=== PATIENT | female | born 1955 | race African-American/Black ===

== ENCOUNTER 2017-01-07 12:03 | Emergency (ER) | payer OTHER ==
[~2017-01-07] VITALS: Ht 165.1 cm; Wt 65.0 kg
[~2017-01-07 12:03] MED LIST: ALLE24TA PO; CYCL5TAB PO; FLUT1SPR9; MELO15TA2 PO; Z.0.NO CURRENT MEDS
[2017-01-07 12:05] VITALS: BP 127/73; PULSE 79; RESP 18; TEMP 98; O2SAT 100
[2017-01-07] MEDS ORDERED: ZANT150T2 PO (12:26)
[2017-01-07] MEDS ORDERED: CYCL1TAB29 PO (12:30)
[2017-01-07] MEDS ORDERED: diphenhydrAMINE HCL 50 MG CAP PO ONE (12:30)
[2017-01-07] MEDS ORDERED: DILA8TAB4 PO (12:30)
[2017-01-07] MEDS ORDERED: RANITIDINE HCL SYRUP 150 MG/10 ML UDC PO ONE (12:30)
[2017-01-07] MEDS ORDERED: LANTUS2P SQ (12:30)
[2017-01-07] MEDS ORDERED: MOBI15TA PO (12:30)
--- NOTE | 2017-01-07 12:31 | PD ---
HPI Chief Complaint: Skin Problem Time Seen by Provider: 12:25 Travel History International Travel<30 days: No Contact w/Intl Traveler<30days: No Traveled to known affect area: No History of Present Illness HPI 61-year-old female presents to the emergency Department with complaint of a rash around both of her eyes after applying a new makeup blush on Wednesday. She denies change in vision, drainage from her eyes, eye pain. Reports rash is itchy. Denies fever, vomiting. Denies airway edema, shortness of breath, difficulty breathing. Is not taking any medications or tried any treatments to alleviate her symptoms. No known allergies. Patient is insulin-dependent diabetic. Has no other medical complaints. No other modifying factors or associated signs and symptoms. PFSH Past Medical History Anxiety: Yes Diabetes: Yes Diminished Hearing: No Fibromyalgia: Yes Musculoskeletal: Yes (rt rotator cuff injury) Neurologic: Yes (FIBROMYALGIA) Psychiatric: Yes (UNKNOWN DIAGNOSIS) Immunizations Current: No ?: Not Menopausal: Yes Past Surgical History Section: Yes Social History Alcohol Use: No Tobacco Use: No Substance Use: No Allergies-Medications (Allergen,Severity, Reaction): Coded Allergies: No Known Allergies (Verified , 01/07/17) Reported Meds & Prescriptions Reported Meds & Active Scripts Active Zantac (Ranitidine HCl) 150 Mg Tab 150 Mg PO BID 5 Days Reported Lantus Inj (Insulin Glargine) 1,000 Unit/10 Ml Vial 20 Units SQ HS Mobic (Meloxicam) 15 Mg Tab 15 Mg PO DAILY Flexeril (Cyclobenzaprine HCl) 10 Mg Tab 10 Mg PO Q8HR PRN Dilaudid (Hydromorphone HCl) 8 Mg Tab 8 Mg PO TID PRN Review of Systems Except as stated in HPI: all other systems reviewed are Neg Physical Exam Narrative GENERAL: Well-nourished, well-developed patient, in no acute distress; afebrile , nontoxic-appearing SKIN: Warm and dry. Small areas of maculopapular rash around both eyes; no orbital tenderness, cellulitis, erythema; both eyes are nonedematous and without drainage. No cellulitic process noted. HEAD: Atraumatic. Normocephalic. EYES: PERRL, EOMI, no discharge or injection. No scleral icterus. No orbital tenderness, cellulitis, erythema. No scleral erythema. No lid edema. ENT: Mucosa pink and moist. No erythema or exudates. No uvular edema. No uvular , palatal, or tonsillar deviation. Airway patent. EARS: Bilateral pinnae and external canals appear within normal limits. NECK: Trachea midline. No lymphadenopathy. CARDIOVASCULAR: Regular rate. RESPIRATORY: No accessory muscle use. GASTROINTESTINAL: Flat. MUSCULOSKELETAL: No obvious deformities. No clubbing. No cyanosis. No edema. NEUROLOGICAL: Awake and alert. Oriented 3. No obvious cranial nerve deficits. Motor grossly within normal limits. Normal speech. Moves all extremities. 5/5 strength to all extremities. PSYCHIATRIC: Appropriate mood and affect; insight and judgment normal. Data Data Last Documented VS Vital Signs Date Time Temp Pulse Resp B/P Pulse Ox O2 Delivery O2 Flow Rate FiO2 01/07/17 12:05 98.0 79 18 127/73 100 Room Air Orders Ranitidine Liq (Zantac Liq) (01/07/17 12:30) Diphenhydramine (Benadryl) (01/07/17 12:30) [facility] Medical Decision Making Medical Screen Exam Complete: Yes Emergency Medical Condition: Yes Medical Record Reviewed: Yes Differential Diagnosis Hives, contact dermatitis, allergic reaction Narrative Course 61-year-old female with rash around both of her eyes that is consistent with hives after using a new makeup blush on Wednesday. Patient denies airway edema. She is in no acute distress and without retractions or tachypnea. Speaking full sentences. Oxygen saturation is 100% on room air. No signs of cellulitis around the eyes. No orbital tenderness. Patient is afebrile and nontoxic- appearing. She denies fever, vomiting. Eye exam is unremarkable. Patient is insulin dependent diabetic. Zantac and Benadryl administered in the ER. Instructed patient to take Benadryl as directed and as needed for rash/itching. Zantac prescribed for home. Instructed patient to follow up with primary care provider. Patient verbalizes understanding and agreement with treatment plan. Patient is medically cleared and stable for discharge. Discussed reasons to return to the emergency department. Patient agrees with treatment plan. The patients vital signs are stable and the patient is stable for outpatient follow-up and treatment. Patient discharged home, stable and in no acute distress. Diagnosis Primary Impression: Hives Referrals: [facility] Administrative Office Clerk Primary Care Physician Patient Instructions: Contact Dermatitis (ED), General Allergic Reaction (ED), General Instructions Additional Instructions: [id number] topicals to reduce itch Benadryl as directed and as needed to reduce itch Follow-up with your primary care provider Follow-up with group program manager as needed Return to the emergency department immediately with worsening of symptoms Med/Other Pt SpecificInfo: Prescription(s) given Scripts Ranitidine (Zantac)150 Mg [id number] Mg PO BID 5 Days Ref 0 Prov:Elina Redman 01/07/17 Disposition: 01 DISCHARGE HOME Condition: Stable Elina Redman Jan 07, 2017 12:31
== END 2017-01-07 13:04 | disposition home or self-care (01) ==
LOC: NEPK 12:03
DX: L50.9 Urticaria, unspecified (principal); F41.9 Anxiety disorder, unspecified; E11.9 Type 2 diabetes mellitus without complications; M79.7 Fibromyalgia; Z79.4 Long term (current) use of insulin; Z79.899 Other long term (current) drug therapy
CPT/HCPCS: 99283; Q0163

== ENCOUNTER 2017-02-26 02:43 | Inpatient (IN) | payer OTHER ==
[~2017-02-26] VITALS: Ht 165.1 cm; Wt 63.4 kg
[2017-02-26] VITALS (8 sets, daily range): BP systolic 113–135; BP diastolic 65–71; PULSE 72–95; RESP 16–18; TEMP 97.7–99; O2SAT 94–98
[~2017-02-26 02:43] MED LIST changes: -ALLE24TA PO; +CYCL1TAB29 PO; -CYCL5TAB PO; +DILA8TAB4 PO; -FLUT1SPR9; +LANTUS2P SQ; -MELO15TA2 PO; +MOBI15TA PO; -Z.0.NO CURRENT MEDS; +ZANT150T2 PO
[2017-02-26 03:27] LABS: BLOOD, URINE LARGE (NEG); GLUCOSE,URINE 1000 mg/dL (NEG); KETONE, URINE 10 mg/dL (NEG); MUCUS URINE FEW /lpf (OCC); RENAL EPITHELIAL CELLS 48 /hpf
[2017-02-26 03:28] LABS: COMMENT (UR) CULTURE INDICATED; CULTURE IF INDICATED CULTURE INDICATED; NITRITE,URINE POS (NEG); URINE COLOR LIGHT-RED (YELLW/STRAW)
[2017-02-26] MEDS ORDERED: SODIUM CHLORIDE 0.9% FLUSH 10 ML FLUSH IVF PRN (03:45)
--- NOTE | 2017-02-26 03:47 | PD ---
HPI Chief Complaint: Flank/Kidney Pain Time Seen by Provider: 03:42 Travel History International Travel<30 days: No Contact w/Intl Traveler<30days: No Traveled to known affect area: No History of Present Illness HPI 62-year-old female came to the emergency room with history of left lower quadrant pain. Patient says that it started yesterday morning and it comes and goes. When it's present it's 8-10 out of 10. It's a sharp pain. She has had kidney stones in the past. No history of nausea vomiting. She has been getting some chills. In triage her temperature was 99. She has hematuria. Patient has history of diabetes. She hasn't had her strips for the glucometer and hasn't checked her sugar in a while. [facility] Past Medical History Narrative Medical List of her past medical, surgical, social and family history is reviewed from the nursing note. Anxiety: Yes Diabetes: Yes (Lantus) Patient Takes Glucophage: No Diminished Hearing: No Fibromyalgia: Yes Musculoskeletal: Yes (rt rotator cuff injury,DJD , SCIATICA, LUMBAR ) Neurologic: Yes (FIBROMYALGIA) Immunizations Current: No Tetanus Vaccination: Unknown Influenza Vaccination: No ?: Not LMP: [place]ap[place] Menopausal: Yes Past Surgical History Abdominal Surgery: Yes (LAPAROSCOPY) Section: Yes Social History Alcohol Use: No Tobacco Use: No Substance Use: No Allergies-Medications (Allergen,Severity, Reaction): Coded Allergies: No Known Allergies (Verified , 01/07/17) Comments List of her allergies reviewed from the nursing note. Reported Meds & Prescriptions Reported Meds & Active Scripts Active Zantac (Ranitidine HCl) 150 Mg Tab 150 Mg PO BID 5 Days Reported Lantus Inj (Insulin Glargine) 1,000 Unit/10 Ml Vial 20 Units SQ HS Mobic (Meloxicam) 15 Mg Tab 15 Mg PO DAILY Flexeril (Cyclobenzaprine HCl) 10 Mg Tab 10 Mg PO Q8HR PRN Dilaudid (Hydromorphone HCl) 8 Mg Tab 8 Mg PO TID PRN Narrative Medication List of her home medications reviewed from the nursing note. Review of Systems Except as stated in HPI: all other systems reviewed are Neg Physical Exam Narrative GENERAL: Awake, alert, moderate distress SKIN: Focused skin assessment warm/dry. HEAD: Atraumatic. Normocephalic. EYES: Pupils equal and round. No scleral icterus. No injection or drainage. ENT: No nasal bleeding or discharge. Mucous membranes pink and moist. NECK: Trachea midline. No JVD. CARDIOVASCULAR: Regular rate and rhythm. No murmur appreciated. RESPIRATORY: No accessory muscle use. Clear to auscultation. Breath sounds equal bilaterally. GASTROINTESTINAL: Abdomen soft, non-tender, nondistended. Hepatic and splenic margins not palpable. MUSCULOSKELETAL: No obvious deformities. No clubbing. No cyanosis. No edema. NEUROLOGICAL: Awake and alert. No obvious cranial nerve deficits. Motor grossly within normal limits. Normal speech. PSYCHIATRIC: Appropriate mood and affect; insight and judgment normal. Data Data Last Documented VS Vital Signs Date Time Temp Pulse Resp B/P (MAP) Pulse Ox O2 Delivery O2 Flow Rate FiO2 02/26/17 02:59 16 02/26/17 02:45 99.0 95 135/70 (91) 98 Room Air Orders Orders Urinalysis - C+S If Indicated (02/26/17 03:04) Urine Culture (02/26/17 03:00) Complete Blood Count With Diff (02/26/17 03:44) Basic Metabolic Panel (Bmp) (02/26/17 03:44) Ct Abd/Pel W/O Iv Contrast (02/26/17 03:44) Ecg Monitoring (02/26/17 03:44) Iv Access Insert/Monitor (02/26/17 03:44) Sodium Chloride 0.9% Flush (Ns Flush) (02/26/17 03:45) Morphine Inj (Morphine Inj) (02/26/17 04:00) Ondansetron Inj (Zofran Inj) (02/26/17 04:00) Ceftriaxone Inj (Rocephin Inj) (02/26/17 04:00) Blood Culture (02/26/17 03:49) Lactic Acid (02/26/17 04:21) Sodium Chlor 0.9% 1000 Ml Inj (Ns 1000 M (02/26/17 04:30) Sodium Chlor 0.9% 1000 Ml Inj (Ns 1000 M (02/26/17 04:30) Blood Glucose (02/26/17 04:29) Potassium Chloride (Kcl) (02/26/17 04:45) Admit Order (Ed Use Only) (02/26/17 05:26) Ceftriaxone Inj (Rocephin Inj) (02/27/17 06:00) Admit To Inpatient (02/26/17 ) Vital Signs (Adult) Q4H (02/26/17 05:24) Activity Oob Ad Tiffani (02/26/17 05:24) Medicaid Analyst / Telemetry .CONTINUOUS (02/26/17 05:24) Intake + Output HANNA.QSHIFT (02/26/17 05:24) Diet 1800 Ada Cons Carb (02/26/17 Breakfast) Sodium Chlor 0.9% 1000 Ml Inj (Ns 1000 M (02/26/17 05:24) Sodium Chloride 0.9% Flush (Ns Flush) (02/26/17 05:30) Sodium Chloride 0.9% Flush (Ns Flush) (02/26/17 09:00) Ondansetron Inj (Zofran Inj) (02/26/17 05:30) Comprehensive Metabolic Panel (02/27/17 06:00) Complete Blood Count With Diff (02/27/17 06:00) Scd Bilateral/Knee High HANNA.BID (02/26/17 05:24) Adán Bilateral/Knee High HANNA.QSHIFT (02/26/17 05:24) Acetaminophen (Tylenol) (02/26/17 05:30) Acetamin-Hydrocod 325-5 Mg (Camas 5-325 (02/26/17 05:30) Morphine Inj (Morphine Inj) (02/26/17 05:30) Docusate Sodium-Senna (Luz-Colace) (02/26/17 09:00) Magnesium Hydroxide Liq (Milk Of Magnesi (02/26/17 05:30) Sennosides (Senokot) (02/26/17 05:30) Bisacodyl Supp (Dulcolax Supp) (02/26/17 05:30) Lactulose Liq (Lactulose Liq) (02/26/17 05:30) Inpatient Certification (02/26/17 ) Insulin Detemir Inj (Levemir Inj) (02/26/17 21:00) Labs Laboratory Tests Test 02/26/17 03:00 02/26/17 04:00 02/26/17 04:30 Urine Color LIGHT-RED Urine Turbidity CLOUDY Urine pH 6.0 Urine Specific [place] 1.035 Urine Protein 300 mg/dL Urine Glucose (UA) 1000 mg/dL Urine Ketones 10 mg/dL Urine Occult Blood LARGE Urine Nitrite POS Urine Bilirubin NEG Urine Urobilinogen LESS THAN 2.0 MG/DL Urine Leukocyte Esterase LARGE Urine RBC /hpf Urine WBC /hpf Urine WBC Clumps MANY Urine Renal Epithelial Cells 48 /hpf Urine Mucus FEW /lpf Microscopic Urinalysis Comment CULTURE INDICATED White Blood Count 15.2 TH/MM3 Red Blood Count 4.60 MIL/MM3 Hemoglobin 13.8 GM/DL Hematocrit 40.8 % Mean Corpuscular Volume 88.7 FL Mean Corpuscular Hemoglobin 30.0 PG Mean Corpuscular Hemoglobin Concent 33.8 % Red Cell Distribution Width 12.6 % Platelet Count 168 TH/MM3 Mean Platelet Volume 9.2 FL Neutrophils (%) (Auto) 84.1 % Lymphocytes (%) (Auto) 9.1 % Monocytes (%) (Auto) 6.2 % Eosinophils (%) (Auto) 0.1 % Basophils (%) (Auto) 0.5 % Neutrophils # (Auto) 12.8 TH/MM3 Lymphocytes # (Auto) 1.4 TH/MM3 Monocytes # (Auto) 1.0 TH/MM3 Eosinophils # (Auto) 0.0 TH/MM3 Basophils # (Auto) 0.1 TH/MM3 CBC Comment DIFF FINAL Differential Comment Blood Urea Nitrogen 10 MG/DL Creatinine 0.91 MG/DL Random Glucose 278 MG/DL Calcium Level 8.7 MG/DL Sodium Level 136 MEQ/L Potassium Level 3.2 MEQ/L Chloride Level 100 MEQ/L Carbon Dioxide Level 29.4 MEQ/L Anion Gap 7 MEQ/L Estimat Glomerular Filtration Rate 76 ML/MIN Lactic Acid Level 0.9 mmol/L [facility] Medical Decision Making Medical Screen Exam Complete: Yes Emergency Medical Condition: Yes Medical Record Reviewed: Yes Differential Diagnosis Ureteral colic, pyelonephritis, acute diverticulitis Narrative Course 4:22 AM urine is grossly positive for UTI as well as hematuria. She has significant amount of glucosuria and proteinuria as well. Awaiting for the blood test results. I've given her IV fluid and IV Rocephin for the UTI. CT scan has been done. Awaiting for the radiologist to read. 4:51 AM patient has leukocytosis. Potassium is moderately low and I have ordered for replacement. Awaiting for the lactic acid. She is getting IV fluid bolus 2 L as well. 5:18 AM given the fact that patient is diabetic and the urine is grossly abnormal for UTI with significant hematuria and leukocytosis I would like to admit her at least for 24 hours for some more IV fluid and antibiotic. I went to reassess her and she says her pain is not completely gone. CT scan shows significant elevation of the left urinary collecting system but no visible stone as per the radiologist. Awaiting for the hospitalist to call back. Procedures EKG Prior to Arrival: No Sepsis Criteria SIRS Criteria (2 or more): Heart rate over 90, WBC > 49573, < 4000 or > 10% bands Sepsis Criteria (SIRS+source): Infect source susp/known Diagnosis Primary Impression: UTI (urinary tract infection) Additional Impressions: Hydroureter Hyperglycemia Dehydration Leukocytosis Systemic inflammatory response syndrome (SIRS) due to infection Admitting Information Admitting Physician Requests: Admit Scripts Lactobacillus Acidophilus (Lactinex) 1 Chew 1 TAB CHEW TID for Nutritional Supplement for 10 Days, #30 TAB 0 Refills Prov: Carlos Alberto Pereyra DO 02/28/17 Ciprofloxacin (Cipro) 500 Mg Tab 500 MG PO BID for Infection for 10 Days, #20 TAB 0 Refills Prov: Carlos Alberto Pereyra DO 02/28/17 Sennosides-Docusate Sodium (Senna Plus 8.6-50 mg) 1 Tab Tab 2 TAB PO BID for CONSTIPATION, #120 TAB Prov: Carlos Alberto Pereyra DO 02/28/17 Liang Schmidt MD Feb 26, 2017 03:47
[2017-02-26] MEDS ORDERED: ONDANSETRON HCL 4 MG/2 ML VIAL IV PUSH ONE (04:00)
[2017-02-26] MEDS ORDERED: cefTRIAXone INJ 1,000 MG in SODIUM CHLORIDE 0.9% INJ 100 ML IV ONE (04:00)
[2017-02-26] MEDS ORDERED: MORPHINE SULFATE 4 MG/ML INJ IV PUSH ONE (04:00)
[2017-02-26 04:08] LABS: AUTOMATED NEUTROPHIL # 12.8 TH/MM3 (1.8-7.7); BASOPHIL # 0.1 TH/MM3 (0-0.2); BASOPHIL % 0.5 % (0.0-2.0); EOSINOPHIL % 0.1 % (0.0-4.0); HEMATOCRIT 40.8 % (35.0-46.0); HEMO FLAGS DIFF FINAL; LYMPH % 9.1 % (9.0-44.0); LYMPHOCYTE # 1.4 TH/MM3 (1.0-4.8); MEAN CELL VOLUME 88.7 FL (80.0-100.0); MEAN CORPUSCULAR HGB CONC 33.8 % (32.0-36.0); MONO % 6.2 % (0.0-8.0); NEUT % 84.1 % (16.0-70.0); PLATELET COUNT 168 TH/MM3 (150-450); RED CELL DISTRIBUTION WIDTH 12.6 % (11.6-17.2); WHITE BLOOD COUNT 15.2 TH/MM3 (4.0-11.0)
--- NOTE | 2017-02-26 04:22 | RADRPT ---
EXAM DATE/TIME: 02/26/2017 04:07 [place] COMPARISON: No previous studies available for comparison. INDICATIONS : Left flank pain. ORAL CONTRAST: No oral contrast ingested. RADIATION DOSE: 4.36 CTDIvol (mGy) MEDICAL HISTORY : Diabetes mellitus type 2. SURGICAL HISTORY : section. ENCOUNTER: Initial ACUITY: 1 day PAIN SCALE: 9/10 LOCATION: Left flank TECHNIQUE: Volumetric scanning of the abdomen and pelvis was performed. Using automated exposure control and ad justment of the mA and/or kV according to patient size, radiation dose was kept as low as reasonably achievable to obtain optimal diagnostic quality images. DICOM format image data is available electro nically for review and comparison. FINDINGS: LOWER LUNGS: The visualized lower lungs are clear except for some minimal dependent atelectatic changes. LIVER: Homogeneous density without lesion. There is no dilation of the biliary tree. No calcified gallston es. SPLEEN: Normal size without lesion. PANCREAS: Within normal limits. KIDNEYS: Mild pelvocaliectasis and hydroureter of the left collecting system but I do not see an obvious urete tyrone stone. Right kidney and collecting system is radiographically normal ADRENAL GLANDS: Within normal limits. VASCULAR: There is no aortic aneurysm. BOWEL/MESENTERY: The stomach, small bowel, and colon demonstrate no acute abnormality. There is no free intraperitone al air or fluid. ABDOMINAL WALL: Within normal limits. RETROPERITONEUM: There is no lymphadenopathy. Multiple phleboliths identified throughout the retroperitoneum extending into the deep pelvis BLADDER: No wall thickening or mass. REPRODUCTIVE: Within normal limits. INGUINAL: There is no lymphadenopathy or hernia. MUSCULOSKELETAL: Within normal limits for patient age. CONCLUSION: 1. Multiple bilateral phleboliths in the retroperitoneum extending into the deep pelvis. 2. There is some pelvocaliectasis and hydroureter of the left kidney but I do not see an obvious obst ructing stone. Trevor Hussein MD on February 26, 2017 at 4:15 Board Certified Radiologist. This report was verified electronically.
[2017-02-26] MEDS ORDERED: SODIUM CHLOR 0.9% 1000 ML INJ 1,000 ML IV ONE ×2 (04:30)
[2017-02-26 04:32] LABS: BICARBONATE 29.4 MEQ/L (21.0-32.0); POTASSIUM 3.2 MEQ/L (3.5-5.1)
[2017-02-26] MEDS ORDERED: POTASSIUM CHLORIDE 20 MEQ CONTROLLED RELEASE TAB PO ONE (04:45)
[2017-02-26] MEDS ORDERED: SODIUM CHLORIDE 0.9% FLUSH 10 ML FLUSH IV FLUSH PRN (05:30)
[2017-02-26] MEDS ORDERED: LACTULOSE SYRUP 20 GM/30 ML CUP PO PRN (05:30)
[2017-02-26] MEDS ORDERED: MAGNESIUM HYDROXIDE SUSP 30 ML CUP PO PRN (05:30)
[2017-02-26] MEDS ORDERED: SENNOSIDES 8.6 MG TAB PO PRN (05:30)
[2017-02-26] MEDS ORDERED: BISACODYL 10 MG SUPP RECTAL PRN (05:30)
[2017-02-26] MEDS ORDERED: ACETAMINOPHEN 325 MG TAB PO PRN (05:30)
[2017-02-26] MEDS ORDERED: MORPHINE SULFATE 4 MG/ML INJ IV PRN (05:30)
[2017-02-26] MEDS ORDERED: ONDANSETRON HCL 4 MG/2 ML VIAL IVP PRN (05:30)
[2017-02-26] MEDS: SODIUM CHLOR 0.9% 1000 ML INJ 1,000 ML IV SCH ×3 (08:40→20:42)
[2017-02-26] MEDS: SODIUM CHLORIDE 0.9% FLUSH 10 ML FLUSH IV FLUSH SCH ×2 (09:06→20:37)
[2017-02-26] MEDS: DOCUSATE SODIUM 50 MG/SENNA 8.6 MG TAB PO SCH ×2 (11:46→20:37)
--- NOTE | 2017-02-26 12:28 | HHI.HP ---
[facility] No Primary Care Physician Admission Diagnosis UTI, SIRS, hyperglycemia Diagnoses: (1) UTI (urinary tract infection) Diagnosis: Principal (2) Hydroureter Diagnosis: Principal (3) Dehydration (4) Leukocytosis (5) Hyperglycemia Diagnosis: Principal Chief Complaint: Kidney flank pain on the left Travel History International Travel<30 Days: No Contact w/Intl Traveler <30 Da: No Traveled to Known Affected Are: No Sepsis Criteria Sepsis Criteria (SIRS+source): Infect source susp/known Criteria Outcome: Meets SIRS criteria, Meets sepsis criteria History of Present Illness 62-year-old female came to the emergency room with history of left lower quadrant pain. Patient says that it started yesterday morning and it comes and goes. When it's present it's 8-10 out of 10. It's a sharp pain. She has had kidney stones in the past. No history of nausea vomiting. She has been getting some chills. In triage her temperature was 99. She has hematuria. Patient has history of diabetes. She hasn't had her strips for the glucometer and hasn't checked her sugar in a while. Patient also states that she has a new sexual partner. And has been having sexual relations lately. Had not had any sexual relations for 12 years prior to that Unsure if patient is using condoms due to the fact that she cannot get anymore Review of Systems Constitutional: COMPLAINS OF: Fatigue, Chills Endocrine: DENIES: Abnorml menstrual pattern, Heat/cold intolerance Eyes: DENIES: Blurred vision, Diplopia, Eye inflammation, Eye pain, Vision loss , Photosensitivity Ears, nose, mouth, throat: DENIES: Tinnitus, Hearing loss, Vertigo, Nasal discharge, Oral lesions, Throat pain, Hoarseness Respiratory: DENIES: Apneas, Cough, Snoring, Wheezing, Hemoptysis Cardiovascular: DENIES: Chest pain, Palpitations, Syncope, Dyspnea on Exertion , PND Gastrointestinal: COMPLAINS OF: Abdominal pain, Nausea, Vomiting, DENIES: Black stools, Bloody stools, Constipation, Diarrhea Genitourinary: COMPLAINS OF: Urinary frequency, Urgency, Hematuria, Dysuria, DENIES: Abnormal vaginal bleeding, Dysmenorrhea, Dyspareunia Musculoskeletal: DENIES: Joint pain, Muscle aches, Stiffness, Joint Swelling Integumentary: DENIES: Abnormal pigmentation, Pruritus, Rash, Nail changes Hematologic/lymphatic: DENIES: Bruising, Lymphadenopathy Immunologic/allergic: DENIES: Eczema, Urticaria Neurologic: DENIES: Abnormal gait, Headache, Localized weakness, Paresthesias, Seizures, Speech Problems Psychiatric: DENIES: Anxiety, Confusion, Mood changes, Depression, Hallucinations, Agitation, Suicidal Ideation Past Family Social History Past Medical History Anxiety: Yes Diabetes: Yes (Lantus) Patient Takes Glucophage: No Diminished Hearing: No Fibromyalgia: Yes Musculoskeletal: Yes (rt rotator cuff injury,DJD , SCIATICA, LUMBAR ) Neurologic: Yes (FIBROMYALGIA) Immunizations Current: No Tetanus Vaccination: Unknown Influenza Vaccination: No ?: Not LMP: menapausal Menopausal: Yes Past Surgical History Episiotomy 2 sections laparoscopy Reported Medications Reported Meds & Active Scripts Active Zantac (Ranitidine HCl) 150 Mg Tab 150 Mg PO BID 5 Days Reported Lantus Inj (Insulin Glargine) 1,000 Unit/10 Ml Vial 20 Units SQ HS Mobic (Meloxicam) 15 Mg Tab 15 Mg PO DAILY Flexeril (Cyclobenzaprine HCl) 10 Mg Tab 10 Mg PO Q8HR PRN Dilaudid (Hydromorphone HCl) 8 Mg Tab 8 Mg PO TID PRN Allergies: Coded Allergies: No Known Allergies (Verified , 01/07/17) Active Ordered Medications Current Medications Sodium Chloride (NS Flush) 2 ml UNSCH PRN IVF FLUSH AFTER USING IV ACCESS; Start 02/26/17 at 03:45; Stop 02/26/17 at 05:34; Status DC Morphine Sulfate (Morphine Inj) 4 mg ONCE ONCE IV PUSH Last administered on 04:37; Start 02/26/17 at 04:00; Stop 02/26/17 at 04:01; Status DC Ondansetron HCl 4 mg 4 mg ONCE ONCE IV PUSH Last administered on 02/26/17 04: 37; Start 02/26/17 at 04:00; Stop 02/26/17 at 04:01; Status DC Ceftriaxone Sodium 1000 mg/ Sodium Chloride 100 ml @ 200 mls/hr ONCE ONCE IV Last administered on 02/26/17 04:38; Start 02/26/17 at 04:00; Stop 02/26/17 at 04:29; Status DC Sodium Chloride 1,000 ml @ 999 mls/hr BOLUS ONCE IV Last administered on 02/26 05:20; Start 02/26/17 at 04:30; Stop 02/26/17 at 05:30; Status DC Sodium Chloride (NS 1000 ml Inj) 1,000 ml @ 999 mls/hr BOLUS ONCE IV Last administered on 02/26/17 04:37; Start 02/26/17 at 04:30; Stop 02/26/17 at 05:30 ; Status DC Potassium Chloride 40 meq 40 meq ONCE ONCE PO Last administered on 02/26/17 05:26; Start 02/26/17 at 04:45; Stop 02/26/17 at 04:46; Status DC Ceftriaxone Sodium 1000 mg/ Sodium Chloride 100 ml @ 200 mls/hr Q24H IV ; Start 02/27/17 at 06:00 Sodium Chloride (NS 1000 ml Inj) 1,000 ml @ 100 mls/hr Q10H IV Last administered on 02/26/17 08:40; Start 02/26/17 at 05:24 Sodium Chloride (NS Flush) 2 ml UNSCH PRN IV FLUSH FLUSH AFTER USING IV ACCESS ; Start 02/26/17 at 05:30 Sodium Chloride (NS Flush) 2 ml BID IV FLUSH Last administered on 02/26/17 09: 06; Start 02/26/17 at 09:00 Ondansetron HCl (Zofran Inj) 4 mg Q6H PRN IVP NAUSEA OR VOMITING; Start at 05:30 Acetaminophen (Tylenol) 650 mg Q6H PRN PO FEVER/PAIN SCALE 1 TO 2; Start at 05:30 Acetaminophen/ Hydrocodone Bitart ([place] 5-325 Mg) 1 tab Q4H PRN PO PAIN SCALE 3 TO 5; Start 02/26/17 at 05:30 Morphine Sulfate (Morphine Inj) 2 mg Q3H PRN IV Pain 6-10; Start 02/26/17 at 05 :30 Senna/Docusate Sodium (Luz-Colace) 1 tab BID PO Last administered on 11:46; Start 02/26/17 at 09:00 Magnesium Hydroxide (Milk Of Magnesia Liq) 30 ml Q12H PRN PO MILD - MODERATE CONSTIPATION; Start 02/26/17 at 05:30 Sennosides (Senokot) 17.2 mg Q12H PRN PO MODERATE - SEVERE CONSTIPATION; Start 02/26/17 at 05:30 Bisacodyl (Dulcolax Supp) 10 mg DAILY PRN RECTAL SEVERE CONSITIPATION; Start at 05:30 Lactulose (Lactulose Liq) 30 ml DAILY PRN PO SEVERE CONSITIPATION; Start at 05:30 Insulin Detemir (Levemir Inj) 20 units HS SQ ; Start 02/26/17 at 21:00 Family History dIABETES AND HYPERTENSION Social History dENIES ANY TOBACCO ALCOHOL OR ILLICITS Physical Exam Vital Signs Vital Signs Date Time Temp Pulse Resp B/P Pulse Ox O2 Delivery O2 Flow Rate FiO2 02/26/17 10:00 97.7 77 16 118/69 94 02/26/17 05:47 85 18 113/71 95 Room Air 02/26/17 02:59 16 02/26/17 02:45 99.0 95 16 135/70 98 Room Air Physical Exam GENERAL: This is a well-nourished, well-developed patient, in no apparent distress. SKIN: No rashes, ecchymoses or lesions. Cool and dry. HEAD: Atraumatic. Normocephalic. No temporal or scalp tenderness. EYES: Pupils equal round and reactive. Extraocular motions intact. No scleral icterus. No injection or drainage. ENT: Nose without bleeding, purulent drainage or septal hematoma. Throat without erythema, tonsillar hypertrophy or exudate. Uvula midline. Airway patent. Tongue is midline NECK: Trachea midline. No JVD or lymphadenopathy. Supple, nontender, no meningeal signs. CARDIOVASCULAR: Regular rate and rhythm without murmurs, gallops, or rubs. S1 and S2 no S3 or S4 no heave or thrill or rub or gallop RESPIRATORY: Clear to auscultation. Breath sounds equal bilaterally. No wheezes , rales, or rhonchi. GASTROINTESTINAL: Abdomen soft, non-tender, nondistended. No hepato-splenomegaly , or palpable masses. No guarding. MUSCULOSKELETAL: Extremities without clubbing, cyanosis, or edema. No joint tenderness, effusion, or edema noted. No calf tenderness. Negative Homans sign bilaterally. NEUROLOGICAL: Awake and alert. Cranial nerves II through XII intact. Motor and sensory grossly within normal limits. Five out of 5 muscle strength in all muscle groups. Normal speech. Insight and judgment are good Mood and behavior appropriate Has some left-sided CVA tenderness Laboratory Laboratory Tests Test 02/26/17 02/26/17 02/26/17 03:00 04:00 04:30 Urine Color LIGHT-RED Urine Turbidity CLOUDY Urine pH 6.0 Urine Specific [place] 1.035 Urine Protein 300 Urine Glucose (UA) 1000 Urine Ketones 10 Urine Occult Blood LARGE Urine Nitrite POS Urine Bilirubin NEG Urine Urobilinogen LESS THAN 2.0 Urine Leukocyte Esterase LARGE Urine RBC Urine WBC Urine WBC Clumps MANY Urine Renal Epithelial Cells 48 Urine Mucus FEW Microscopic Urinalysis Comment CULTURE INDICATED White Blood Count 15.2 Red Blood Count 4.60 Hemoglobin 13.8 Hematocrit 40.8 Mean Corpuscular Volume 88.7 Mean Corpuscular Hemoglobin 30.0 Mean Corpuscular Hemoglobin 33.8 Concent Red Cell Distribution Width 12.6 Platelet Count 168 Mean Platelet Volume 9.2 Neutrophils (%) (Auto) 84.1 Lymphocytes (%) (Auto) 9.1 Monocytes (%) (Auto) 6.2 Eosinophils (%) (Auto) 0.1 Basophils (%) (Auto) 0.5 Neutrophils # (Auto) 12.8 Lymphocytes # (Auto) 1.4 Monocytes # (Auto) 1.0 Eosinophils # (Auto) 0.0 Basophils # (Auto) 0.1 CBC Comment DIFF FINAL Differential Comment Sodium Level 136 Potassium Level 3.2 Chloride Level 100 Carbon Dioxide Level 29.4 Anion Gap 7 Blood Urea Nitrogen 10 Creatinine 0.91 Estimat Glomerular Filtration 76 Rate Random Glucose 278 Calcium Level 8.7 Lactic Acid Level 0.9 Date/Time Procedure Status Source Growth 02/26/17 04:35 Aerobic Blood Culture Received Blood Peripheral Pending 02/26/17 04:35 Anaerobic Blood Culture Received Blood Peripheral Pending 02/26/17 03:00 Urine Culture Received Urine Clean Catch Pending Result Diagram: 02/26/17 0400 02/26/17 0400 Imaging Last Impressions Abdomen/Pelvis CT 02/26/17 0341 Signed Impressions: Service Date/Time: Wednesday, February 26, 2017 04:07 - CONCLUSION: 1. Multiple bilateral phleboliths in the retroperitoneum extending into the deep pelvis. 2. There is some pelvocaliectasis and hydroureter of the left kidney but I do not see an obvious obstructing stone. Trevor Hussein MD Septic Shock Reassessment Heart: Regular rate and rhythm Lungs: Clear Skin: Warm Peripheral Pulses: Bounding Right Radial Bounding Left Radial Bounding Right Popliteal Bounding Left Popliteal Bounding Right Dorsalis Pedis Bounding Left Dorsalis Pedis Bounding Right Posterior Tibial Bounding Left Posterior Tibial Capillary Refill: Brisk Assessment and Plan Problem List: (1) Hyperglycemia ICD Code: R73.9 Status: Acute (2) Leukocytosis ICD Code: D72.829 Status: Acute (3) Dehydration ICD Code: E86.0 Status: Acute (4) Hydroureter ICD Code: N13.4 Status: Acute (5) UTI (urinary tract infection) ICD Code: N39.0 Status: Acute (6) Diabetes ICD Code: E11.9 Status: Acute (7) Fibromyalgia ICD Code: M79.7 Status: Acute Assessment and Plan Urinary tract infection with hematuria and positive urinary symptoms continue on current antibiotics with Rocephin Diabetes mellitus continue on sliding scale coverage with Accu-Cheks before meals and at bedtime and her Lantus Fibromyalgia continue chronic pain medications Dehydration fluids Left-sided flank pain with hydroureter urinary tract infection continue on Rocephin Get physical therapy and occupational therapy to eval and treat Recent increase of sexual relations possible honeymoon cystitis Code Status Full code Discussed Condition With Discussed with patient and RN Physician Certification 2 Midnight Certification Type: Admission for Inpatient Services Order for Inpatient Services The services are ordered in accordance with Medicare regulations or non- Medicare payer requirements, as applicable. In the case of services not specified as inpatient-only, they are appropriately provided as inpatient services in accordance with the 2-midnight benchmark. Estimated LOS (days): 2 2 days is the estimated time the patient will need to remain in the hospital, assuming treatment plan goals are met and no additional complications. Post-Hospital Plan: Home Problem Qualifiers (1) UTI (urinary tract infection): Qualified Code: N39.0 - Urinary tract infection with hematuria, site unspecified (2) Leukocytosis: Qualified Code: D72.829 - Leukocytosis, unspecified type Carlos Alberto Pereyra DO Feb 26, 2017 12:28
[2017-02-26] MEDS ORDERED: DEXTROSE 50% IN WATER 50 ML VIAL(D50) IV PRN (12:30)
[2017-02-26] MEDS ORDERED: GLUCAGON 1 MG/ML VIAL OTHER PRN (12:30)
[2017-02-26] MEDS ORDERED: CYCLOBENZAPRINE HCL 10 MG TAB PO PRN (12:30)
[2017-02-26] MEDS: INSULIN ASPART SUPPLEMENTAL SCALE SQ SCH ×2 (14:17→20:44)
[2017-02-26] MEDS: FAMOTIDINE 20 MG TAB PO SCH (20:36)
[2017-02-26] MEDS: INSULIN DETEMIR 100 UNITS/ML VIAL SQ SCH (20:42)
[2017-02-27] VITALS (8 sets, daily range): BP systolic 119–147; BP diastolic 70–82; PULSE 64–77; RESP 12–19; TEMP 96.2–98.9; O2SAT 94–100
[2017-02-27] MEDS: ACETAMINOPHEN/HYDROcodone 325 MG/5 MG TAB PO PRN (08:44)
[2017-02-27] MEDS: MELOXICAM 15 MG TAB PO SCH (08:45)
[2017-02-27] MEDS: DOCUSATE SODIUM 50 MG/SENNA 8.6 MG TAB PO SCH ×2 (08:45→20:11)
[2017-02-27] MEDS: FAMOTIDINE 20 MG TAB PO SCH ×2 (08:46→20:11)
[2017-02-27] MEDS: cefTRIAXone INJ 1,000 MG in SODIUM CHLORIDE 0.9% INJ 100 ML IV SCH (08:47)
[2017-02-27] MEDS: SODIUM CHLORIDE 0.9% FLUSH 10 ML FLUSH IV FLUSH SCH ×2 (08:47→20:11)
[2017-02-27] MEDS: SODIUM CHLOR 0.9% 1000 ML INJ 1,000 ML IV SCH ×2 (08:47→20:23)
[2017-02-27] MEDS: INSULIN ASPART SUPPLEMENTAL SCALE SQ SCH ×4 (08:54→20:20)
--- NOTE | 2017-02-27 09:20 | HHI.PR ---
Subjective Remarks 62-year-old female came to the emergency room with history of left lower quadrant pain. Patient says that it started yesterday morning and it comes and goes. When it's present it's 8-10 out of 10. It's a sharp pain. She has had kidney stones in the past. No history of nausea vomiting. She has been getting some chills. In triage her temperature was 99. She has hematuria. Patient has history of diabetes. She hasn't had her strips for the glucometer and hasn't checked her sugar in a while. Patient also states that she has a new sexual partner. And has been having sexual relations lately. Had not had any sexual relations for 12 years prior to that Unsure if patient is using condoms due to the fact that she cannot get anymore 02-27 she still has some back pain but feels a little better than yesterday. Continue antibiotics continue fluids Discussed with patient and RN Objective Vitals Vital Signs Date Time Temp Pulse Resp B/P Pulse Ox O2 Delivery O2 Flow Rate FiO2 02/27/17 04:00 98.9 77 18 135/76 97 02/27/17 00:10 67 02/27/17 00:00 97.6 66 18 147/70 98 02/26/17 20:30 82 02/26/17 20:00 98.9 76 17 120/66 98 02/26/17 16:00 98.0 78 16 125/65 95 02/26/17 14:23 84 02/26/17 13:00 97.8 72 16 124/71 95 02/26/17 10:00 97.7 77 16 118/69 94 I/O 02/26/17 02/26/17 02/26/17 02/27/17 02/27/17 02/27/17 07:00 15:00 23:00 07:00 15:00 23:00 Intake Total 436 ml 840 ml Balance 436 ml 840 ml Intake Oral 840 ml IV Total 436 ml # Voids 2 1 Result Diagram: 02/26/17 0400 02/26/17 0400 Other Results Laboratory Tests Test 02/26/17 02/26/17 02/26/17 03:00 04:00 04:30 Urine Color LIGHT-RED Urine Turbidity CLOUDY Urine pH 6.0 Urine Specific [place] 1.035 Urine Protein 300 mg/dL Urine Glucose (UA) 1000 mg/dL Urine Ketones 10 mg/dL Urine Occult Blood LARGE Urine Nitrite POS Urine Bilirubin NEG Urine Urobilinogen LESS THAN 2.0 MG/DL Urine Leukocyte Esterase LARGE Urine RBC /hpf Urine WBC /hpf Urine WBC Clumps MANY Urine Renal Epithelial Cells 48 /hpf Urine Mucus FEW /lpf Microscopic Urinalysis Comment CULTURE INDICATED White Blood Count 15.2 TH/MM3 Red Blood Count 4.60 MIL/MM3 Hemoglobin 13.8 GM/DL Hematocrit 40.8 % Mean Corpuscular Volume 88.7 FL Mean Corpuscular Hemoglobin 30.0 PG Mean Corpuscular Hemoglobin 33.8 % Concent Red Cell Distribution Width 12.6 % Platelet Count 168 TH/MM3 Mean Platelet Volume 9.2 FL Neutrophils (%) (Auto) 84.1 % Lymphocytes (%) (Auto) 9.1 % Monocytes (%) (Auto) 6.2 % Eosinophils (%) (Auto) 0.1 % Basophils (%) (Auto) 0.5 % Neutrophils # (Auto) 12.8 TH/MM3 Lymphocytes # (Auto) 1.4 TH/MM3 Monocytes # (Auto) 1.0 TH/MM3 Eosinophils # (Auto) 0.0 TH/MM3 Basophils # (Auto) 0.1 TH/MM3 CBC Comment DIFF FINAL Differential Comment Sodium Level 136 MEQ/L Potassium Level 3.2 MEQ/L Chloride Level 100 MEQ/L Carbon Dioxide Level 29.4 MEQ/L Anion Gap 7 MEQ/L Blood Urea Nitrogen 10 MG/DL Creatinine 0.91 MG/DL Estimat Glomerular Filtration 76 ML/MIN Rate Random Glucose 278 MG/DL Calcium Level 8.7 MG/DL Lactic Acid Level 0.9 mmol/L Imaging Last Impressions Abdomen/Pelvis CT 02/26/17 0344 Signed Impressions: Service Date/Time: Sunday, February 26, 2017 04:07 - CONCLUSION: 1. Multiple bilateral phleboliths in the retroperitoneum extending into the deep pelvis. 2. There is some pelvocaliectasis and hydroureter of the left kidney but I do not see an obvious obstructing stone. Trevor Hussein MD Objective Remarks GENERAL: This is a well-nourished, well-developed patient, in no apparent distress. SKIN: No rashes, ecchymoses or lesions. Cool and dry. HEAD: Atraumatic. Normocephalic. No temporal or scalp tenderness. EYES: Pupils equal round and reactive. Extraocular motions intact. No scleral icterus. No injection or drainage. ENT: Nose without bleeding, purulent drainage or septal hematoma. Throat without erythema, tonsillar hypertrophy or exudate. Uvula midline. Airway patent. Tongue is midline NECK: Trachea midline. No JVD or lymphadenopathy. Supple, nontender, no meningeal signs. CARDIOVASCULAR: Regular rate and rhythm without murmurs, gallops, or rubs. S1 and S2 no S3 or S4 no heave or thrill or rub or gallop RESPIRATORY: Clear to auscultation. Breath sounds equal bilaterally. No wheezes , rales, or rhonchi. GASTROINTESTINAL: Abdomen soft, non-tender, nondistended. No hepato-splenomegaly , or palpable masses. No guarding. MUSCULOSKELETAL: Extremities without clubbing, cyanosis, or edema. No joint tenderness, effusion, or edema noted. No calf tenderness. Negative Homans sign bilaterally. NEUROLOGICAL: Awake and alert. Cranial nerves II through XII intact. Motor and sensory grossly within normal limits. Five out of 5 muscle strength in all muscle groups. Normal speech. Insight and judgment are good Mood and behavior appropriate LESS CVA tenderness Has some left-sided CVA tenderness Medications and IVs Current Medications Sodium Chloride (NS Flush) 2 ml UNSCH PRN IVF FLUSH AFTER USING IV ACCESS; Start 02/26/17 at 03:45; Stop 02/26/17 at 05:34; Status DC Morphine Sulfate (Morphine Inj) 4 mg ONCE ONCE IV PUSH Last administered on 04:37; Start 02/26/17 at 04:00; Stop 02/26/17 at 04:01; Status DC Ondansetron HCl 4 mg 4 mg ONCE ONCE IV PUSH Last administered on 02/26/17 04: 37; Start 02/26/17 at 04:00; Stop 02/26/17 at 04:01; Status DC Ceftriaxone Sodium 1000 mg/ Sodium Chloride 100 ml @ 200 mls/hr ONCE ONCE IV Last administered on 02/26/17 04:38; Start 02/26/17 at 04:00; Stop 02/26/17 at 04:29; Status DC Sodium Chloride 1,000 ml @ 999 mls/hr BOLUS ONCE IV Last administered on 02/26 05:20; Start 02/26/17 at 04:30; Stop 02/26/17 at 05:30; Status DC Sodium Chloride (NS 1000 ml Inj) 1,000 ml @ 999 mls/hr BOLUS ONCE IV Last administered on 02/26/17 04:37; Start 02/26/17 at 04:30; Stop 02/26/17 at 05:30 ; Status DC Potassium Chloride 40 meq 40 meq ONCE ONCE PO Last administered on 02/26/17 05:26; Start 02/26/17 at 04:45; Stop 02/26/17 at 04:46; Status DC Ceftriaxone Sodium 1000 mg/ Sodium Chloride 100 ml @ 200 mls/hr Q24H IV Last administered on 02/27/17 08:47; Start 02/27/17 at 06:00 Sodium Chloride (NS 1000 ml Inj) 1,000 ml @ 100 mls/hr Q10H IV Last administered on 02/27/17 08:47; Start 02/26/17 at 05:24 Sodium Chloride (NS Flush) 2 ml UNSCH PRN IV FLUSH FLUSH AFTER USING IV ACCESS ; Start 02/26/17 at 05:30 Sodium Chloride (NS Flush) 2 ml BID IV FLUSH Last administered on 02/27/17 08: 47; Start 02/26/17 at 09:00 Ondansetron HCl (Zofran Inj) 4 mg Q6H PRN IVP NAUSEA OR VOMITING; Start at 05:30 Acetaminophen (Tylenol) 650 mg Q6H PRN PO FEVER/PAIN SCALE 1 TO 2; Start at 05:30 Acetaminophen/ Hydrocodone Bitart ([place] 5-325 Mg) 1 tab Q4H PRN PO PAIN SCALE 3 TO 5 Last administered on 02/27/17 08:44; Start 02/26/17 at 05:30 Morphine Sulfate (Morphine Inj) 2 mg Q3H PRN IV Pain 6-10; Start 02/26/17 at 05 :30 Senna/Docusate Sodium (Luz-Colace) 1 tab BID PO Last administered on 08:45; Start 02/26/17 at 09:00 Magnesium Hydroxide (Milk Of Magnesia Liq) 30 ml Q12H PRN PO MILD - MODERATE CONSTIPATION; Start 02/26/17 at 05:30 Sennosides (Senokot) 17.2 mg Q12H PRN PO MODERATE - SEVERE CONSTIPATION; Start 02/26/17 at 05:30 Bisacodyl (Dulcolax Supp) 10 mg DAILY PRN RECTAL SEVERE CONSITIPATION; Start at 05:30 Lactulose (Lactulose Liq) 30 ml DAILY PRN PO SEVERE CONSITIPATION; Start at 05:30 Insulin Detemir (Levemir Inj) 20 units HS SQ Last administered on 02/26/17 20: 42; Start 02/26/17 at 21:00 Dextrose (D50w (Vial) Inj) 50 ml UNSCH PRN IV HYPOGLYCEMIA-SEE COMMENTS; Start 02/26/17 at 12:30 Glucagon (Glucagon Inj) 1 mg UNSCH PRN OTHER HYPOGLYCEMIA-SEE COMMENTS; Start 02/26/17 at 12:30 Insulin Aspart (NovoLOG SUPPLEMENTAL SCALE) 1 ACHS SLIDING SCALE SQ Last administered on 02/26/17 20:44; Start 02/26/17 at 16:00 Cyclobenzaprine HCl (Flexeril) 10 mg Q8HR PRN PO MUSCLE SPASM; Start 02/26/17 at 12:30 Meloxicam (Mobic) 15 mg DAILY PO Last administered on 02/27/17 08:45; Start at 09:00 Famotidine (Pepcid) 20 mg BID PO Last administered on 02/27/17 08:46; Start at 21:00 Urinary Catheter: No Vascular Central Line Catheter: No A/P Problem List: (1) Hyperglycemia ICD Code: R73.9 Status: Acute (2) Leukocytosis ICD Code: D72.829 Status: Acute (3) Dehydration ICD Code: E86.0 Status: Acute (4) Hydroureter ICD Code: N13.4 Status: Acute (5) UTI (urinary tract infection) ICD Code: N39.0 Status: Acute (6) Diabetes ICD Code: E11.9 Status: Acute (7) Fibromyalgia ICD Code: M79.7 Status: Acute Assessment and Plan Urinary tract infection with hematuria and positive urinary symptoms continue on current antibiotics with Rocephin Diabetes mellitus continue on sliding scale coverage with Accu-Cheks before meals and at bedtime and her Lantus Fibromyalgia continue chronic pain medications Dehydration fluids Left-sided flank pain with hydroureter urinary tract infection continue on Rocephin Get physical therapy and occupational therapy to eval and treat Recent increase of sexual relations possible honeymoon cystitis Am labs Problem Qualifiers (1) Leukocytosis: Qualified Code: D72.829 - Leukocytosis, unspecified type (2) UTI (urinary tract infection): Qualified Code: N39.0 - Urinary tract infection with hematuria, site unspecified Carlos Alberto Pereyra DO Feb 27, 2017 09:20
[2017-02-27] MEDS ORDERED: POTASSIUM CHLORIDE 10 MEQ CONTROLLED RELEASE TAB PO ONE (09:30)
[2017-02-27 13:02] LABS: AUTOMATED NEUTROPHIL # 5.2 TH/MM3 (1.8-7.7); BASOPHIL % 0.3 % (0.0-2.0); EOSINOPHIL % 0.3 % (0.0-4.0); HEMATOCRIT 38.1 % (35.0-46.0); HEMO FLAGS DIFF FINAL; LYMPHOCYTE # 1.7 TH/MM3 (1.0-4.8); MEAN CELL VOLUME 90.8 FL (80.0-100.0); MONO % 5.3 % (0.0-8.0); NEUT % 71.1 % (16.0-70.0); PLATELET COUNT 163 TH/MM3 (150-450); RED BLOOD COUNT 4.19 MIL/MM3 (4.00-5.30); RED CELL DISTRIBUTION WIDTH 12.8 % (11.6-17.2); WHITE BLOOD COUNT 7.3 TH/MM3 (4.0-11.0)
[2017-02-27 13:35] LABS: ANION GAP 7 MEQ/L (5-15); AST (GOT) 10 U/L (15-37); BICARBONATE 28.2 MEQ/L (21.0-32.0); BLOOD UREA NITROGEN 10 MG/DL (7-18); CHLORIDE 105 MEQ/L (98-107); GLOMERULAR FILTRATION RATE 115 ML/MIN (>89); MAGNESIUM 1.9 MG/DL (1.5-2.5); POTASSIUM 3.4 MEQ/L (3.5-5.1); SODIUM (NA) 140 MEQ/L (136-145)
[2017-02-27 13:44] LABS: ALKALINE PHOSPHATASE 99 U/L (45-117); ALT (GPT) 16 U/L (10-53); FREE T4 1.32 NG/DL (0.76-1.46); TOTAL BILIRUBIN ADULT 0.3 MG/DL (0.2-1.0)
[2017-02-27 14:20] LABS: HEMOGLOBIN A1a 1.2 %; HEMOGLOBIN A1b 1.2 %; HEMOGLOBIN F 1.7 %; HEMOGLOBIN LA1C 2.4 %; HEMOGLOBIN P3 3.9 %
[2017-02-27] MEDS: INSULIN DETEMIR 100 UNITS/ML VIAL SQ SCH (20:20)
[2017-02-28] VITALS: BP 126/82; PULSE 59; PULSE 68; RESP 19; TEMP 97.6; O2SAT 100
[2017-02-28 04:00] VITALS: BP 128/78; PULSE 64; PULSE 68; RESP 19; TEMP 97.2; O2SAT 100
[2017-02-28] MEDS: ACETAMINOPHEN/HYDROcodone 325 MG/5 MG TAB PO PRN (04:10)
[2017-02-28] MEDS: cefTRIAXone INJ 1,000 MG in SODIUM CHLORIDE 0.9% INJ 100 ML IV SCH (05:15)
[2017-02-28 05:39] LABS: AUTOMATED NEUTROPHIL # 2.8 TH/MM3 (1.8-7.7); BASOPHIL % 0.4 % (0.0-2.0); EOSINOPHIL # 0.1 TH/MM3 (0-0.4); HEMATOCRIT 38.6 % (35.0-46.0); HEMO FLAGS DIFF FINAL; LYMPH % 40.2 % (9.0-44.0); LYMPHOCYTE # 2.2 TH/MM3 (1.0-4.8); MEAN CELL VOLUME 89.9 FL (80.0-100.0); MEAN CORPUSCULAR HEMOGLOBIN 29.6 PG (27.0-34.0); MEAN CORPUSCULAR HGB CONC 32.9 % (32.0-36.0); MONO % 6.7 % (0.0-8.0); NEUT % 51.7 % (16.0-70.0); PLATELET COUNT 174 TH/MM3 (150-450); RED BLOOD COUNT 4.29 MIL/MM3 (4.00-5.30); RED CELL DISTRIBUTION WIDTH 12.8 % (11.6-17.2); WHITE BLOOD COUNT 5.4 TH/MM3 (4.0-11.0)
[2017-02-28] MEDS: INSULIN ASPART SUPPLEMENTAL SCALE SQ SCH ×2 (06:15→11:00)
[2017-02-28 06:19] LABS: ALT (GPT) 22 U/L (10-53); ANION GAP 6 MEQ/L (5-15); AST (GOT) 13 U/L (15-37); CHLORIDE 106 MEQ/L (98-107); GLOMERULAR FILTRATION RATE 126 ML/MIN (>89); MAGNESIUM 1.9 MG/DL (1.5-2.5); POTASSIUM 3.6 MEQ/L (3.5-5.1); SODIUM (NA) 141 MEQ/L (136-145)
[2017-02-28 06:26] LABS: ALKALINE PHOSPHATASE 110 U/L (45-117); BLOOD UREA NITROGEN 8 MG/DL (7-18); TOTAL BILIRUBIN ADULT 0.2 MG/DL (0.2-1.0)
[2017-02-28] MEDS: SODIUM CHLOR 0.9% 1000 ML INJ 1,000 ML IV SCH (07:24)
[2017-02-28] MEDS: DOCUSATE SODIUM 50 MG/SENNA 8.6 MG TAB PO SCH (08:14)
[2017-02-28] MEDS: FAMOTIDINE 20 MG TAB PO SCH (08:14)
[2017-02-28] MEDS: MELOXICAM 15 MG TAB PO SCH (08:14)
[2017-02-28] MEDS: SODIUM CHLORIDE 0.9% FLUSH 10 ML FLUSH IV FLUSH SCH (08:14)
[2017-02-28 08:30] VITALS: PULSE 58
--- NOTE | 2017-02-28 14:25 | HHI.PR ---
Subjective Remarks 62-year-old female came to the emergency room with history of left lower quadrant pain. Patient says that it started yesterday morning and it comes and goes. When it's present it's 8-10 out of 10. It's a sharp pain. She has had kidney stones in the past. No history of nausea vomiting. She has been getting some chills. In triage her temperature was 99. She has hematuria. Patient has history of diabetes. She hasn't had her strips for the glucometer and hasn't checked her sugar in a while. Patient also states that she has a new sexual partner. And has been having sexual relations lately. Had not had any sexual relations for 12 years prior to that Unsure if patient is using condoms due to the fact that she cannot get anymore 02-27 she still has some back pain but feels a little better than yesterday. Continue antibiotics continue fluids Discussed with patient and RN 02-28 feeling better wants to go home. Escherichia coli noted on the urinary tract infection pansensitive Does not like the food. Would like to go home We'll discharge to home today on oral Cipro To follow-up with her primary care physician Discharged Objective Vitals Vital Signs Date Time Temp Pulse Resp B/P (MAP) Pulse Ox O2 Delivery O2 Flow Rate FiO2 02/28/17 08:30 58 02/28/17 04:00 97.2 68 19 128/78 (95) 100 02/28/17 04:00 64 02/28/17 00:00 97.6 68 19 126/82 (97) 100 02/28/17 00:00 59 02/27/17 20:00 67 02/27/17 20:00 97.6 71 19 138/74 (95) 99 02/27/17 16:00 97.3 64 14 128/74 (92) 99 I/O 02/27/17 02/27/17 02/27/17 02/28/17 02/28/17 02/28/17 07:00 15:00 23:00 07:00 15:00 23:00 Intake Total 472 ml 480 ml Balance 472 ml 480 ml Intake Oral 472 ml 480 ml # Voids 1 2 2 # Bowel Movements 0 Result Diagram: 02/28/170 02/28/17 0440 Other Results Laboratory Tests Test 02/26/17 03:00 02/26/17 04:00 02/26/17 04:30 02/27/17 11:06 Urine Color LIGHT-RED Urine Turbidity CLOUDY Urine pH 6.0 Urine Specific [place] 1.035 Urine Protein 300 mg/dL Urine Glucose (UA) 1000 mg/dL Urine Ketones 10 mg/dL Urine Occult Blood LARGE Urine Nitrite POS Urine Bilirubin NEG Urine Urobilinogen LESS THAN 2.0 MG/DL Urine Leukocyte Esterase LARGE Urine RBC /hpf Urine WBC /hpf Urine WBC Clumps MANY Urine Renal Epithelial Cells 48 /hpf Urine Mucus FEW /lpf Microscopic Urinalysis Comment CULTURE INDICATED White Blood Count 15.2 TH/MM3 7.3 TH/MM3 Red Blood Count 4.60 MIL/MM3 4.19 MIL/MM3 Hemoglobin 13.8 GM/DL 12.6 GM/DL Hematocrit 40.8 % 38.1 % Mean Corpuscular Volume 88.7 FL 90.8 FL Mean Corpuscular Hemoglobin 30.0 PG 30.0 PG Mean Corpuscular Hemoglobin Concent 33.8 % 33.0 % Red Cell Distribution Width 12.6 % 12.8 % Platelet Count 168 TH/MM3 163 TH/MM3 Mean Platelet Volume 9.2 FL 9.2 FL Neutrophils (%) (Auto) 84.1 % 71.1 % Lymphocytes (%) (Auto) 9.1 % 23.0 % Monocytes (%) (Auto) 6.2 % 5.3 % Eosinophils (%) (Auto) 0.1 % 0.3 % Basophils (%) (Auto) 0.5 % 0.3 % Neutrophils # (Auto) 12.8 TH/MM3 5.2 TH/MM3 Lymphocytes # (Auto) 1.4 TH/MM3 1.7 TH/MM3 Monocytes # (Auto) 1.0 TH/MM3 0.4 TH/MM3 Eosinophils # (Auto) 0.0 TH/MM3 0.0 TH/MM3 Basophils # (Auto) 0.1 TH/MM3 0.0 TH/MM3 CBC Comment DIFF FINAL DIFF FINAL Differential Comment Blood Urea Nitrogen 10 MG/DL 10 MG/DL Creatinine 0.91 MG/DL 0.64 MG/DL Random Glucose 278 MG/DL 210 MG/DL Calcium Level 8.7 MG/DL 9.0 MG/DL Sodium Level 136 MEQ/L 140 MEQ/L Potassium Level 3.2 MEQ/L 3.4 MEQ/L Chloride Level 100 MEQ/L 105 MEQ/L Carbon Dioxide Level 29.4 MEQ/L 28.2 MEQ/L Anion Gap 7 MEQ/L 7 MEQ/L Estimat Glomerular Filtration Rate 76 ML/MIN 115 ML/MIN Lactic Acid Level 0.9 mmol/L Total Protein 6.3 GM/DL Albumin 2.8 GM/DL Phosphorus Level 3.0 MG/DL Magnesium Level 1.9 MG/DL Alkaline Phosphatase 99 U/L Aspartate Amino Transf (AST/SGOT) 10 U/L Alanine Aminotransferase (ALT/SGPT) 16 U/L Total Bilirubin 0.3 MG/DL Hemoglobin A1c 13.4 % Free Thyroxine 1.32 NG/DL Thyroid Stimulating Hormone 3rd Gen 0.236 uIU/ML Test 02/28/17 04:40 White Blood Count 5.4 TH/MM3 Red Blood Count 4.29 MIL/MM3 Hemoglobin 12.7 GM/DL Hematocrit 38.6 % Mean Corpuscular Volume 89.9 FL Mean Corpuscular Hemoglobin 29.6 PG Mean Corpuscular Hemoglobin Concent 32.9 % Red Cell Distribution Width 12.8 % Platelet Count 174 TH/MM3 Mean Platelet Volume 8.6 FL Neutrophils (%) (Auto) 51.7 % Lymphocytes (%) (Auto) 40.2 % Monocytes (%) (Auto) 6.7 % Eosinophils (%) (Auto) 1.0 % Basophils (%) (Auto) 0.4 % Neutrophils # (Auto) 2.8 TH/MM3 Lymphocytes # (Auto) 2.2 TH/MM3 Monocytes # (Auto) 0.4 TH/MM3 Eosinophils # (Auto) 0.1 TH/MM3 Basophils # (Auto) 0.0 TH/MM3 CBC Comment DIFF FINAL Differential Comment Blood Urea Nitrogen 8 MG/DL Creatinine 0.59 MG/DL Random Glucose 123 MG/DL Total Protein 6.6 GM/DL Albumin 2.8 GM/DL Calcium Level 8.7 MG/DL Phosphorus Level 3.3 MG/DL Magnesium Level 1.9 MG/DL Alkaline Phosphatase 110 U/L Aspartate Amino Transf (AST/SGOT) 13 U/L Alanine Aminotransferase (ALT/SGPT) 22 U/L Total Bilirubin 0.2 MG/DL Sodium Level 141 MEQ/L Potassium Level 3.6 MEQ/L Chloride Level 106 MEQ/L Carbon Dioxide Level 29.0 MEQ/L Anion Gap 6 MEQ/L Estimat Glomerular Filtration Rate 126 ML/MIN Imaging Last Impressions Abdomen/Pelvis CT 02/26/17 0344 Signed Impressions: Service Date/Time: Sunday, February 26, 2017 04:07 - CONCLUSION: 1. Multiple bilateral phleboliths in the retroperitoneum extending into the deep pelvis. 2. There is some pelvocaliectasis and hydroureter of the left kidney but I do not see an obvious obstructing stone. Trevor Hussein MD Objective Remarks GENERAL: This is a well-nourished, well-developed patient, in no apparent distress. SKIN: No rashes, ecchymoses or lesions. Cool and dry. HEAD: Atraumatic. Normocephalic. No temporal or scalp tenderness. EYES: Pupils equal round and reactive. Extraocular motions intact. No scleral icterus. No injection or drainage. ENT: Nose without bleeding, purulent drainage or septal hematoma. Throat without erythema, tonsillar hypertrophy or exudate. Uvula midline. Airway patent. Tongue is midline NECK: Trachea midline. No JVD or lymphadenopathy. Supple, nontender, no meningeal signs. CARDIOVASCULAR: Regular rate and rhythm without murmurs, gallops, or rubs. S1 and S2 no S3 or S4 no heave or thrill or rub or gallop RESPIRATORY: Clear to auscultation. Breath sounds equal bilaterally. No wheezes , rales, or rhonchi. GASTROINTESTINAL: Abdomen soft, non-tender, nondistended. No hepato-splenomegaly , or palpable masses. No guarding. MUSCULOSKELETAL: Extremities without clubbing, cyanosis, or edema. No joint tenderness, effusion, or edema noted. No calf tenderness. Negative Homans sign bilaterally. NEUROLOGICAL: Awake and alert. Cranial nerves II through XII intact. Motor and sensory grossly within normal limits. Five out of 5 muscle strength in all muscle groups. Normal speech. Insight and judgment are good Mood and behavior appropriate LESS CVA tenderness Has some left-sided CVA tenderness Procedures None Medications and IVs Current Medications Sodium Chloride (NS Flush) 2 ml UNSCH PRN IVF FLUSH AFTER USING IV ACCESS; Start 02/26/17 at 03:45; Stop 02/26/17 at 05:34; Status DC Morphine Sulfate (Morphine Inj) 4 mg ONCE ONCE IV PUSH Last administered on t 04:37; Start 02/26/17 at 04:00; Stop 02/26/17 at 04:01; Status DC Ondansetron HCl (Zofran Inj) 4 mg ONCE ONCE IV PUSH Last administered on 04:37; Start 02/26/17 at 04:00; Stop 02/26/17 at 04:01; Status DC Ceftriaxone Sodium 1000 mg/ Sodium Chloride 100 ml @ 200 mls/hr ONCE ONCE IV Last administered on 02/26/17 04:38; Start 02/26/17 at 04:00; Stop 02/26/17 at 04:29; Status DC Sodium Chloride 1,000 ml @ 999 mls/hr BOLUS ONCE IV Last administered on 02/26 05:20; Start 02/26/17 at 04:30; Stop 02/26/17 at 05:30; Status DC Sodium Chloride 1,000 ml @ 999 mls/hr BOLUS ONCE IV Last administered on 02/26 04:37; Start 02/26/17 at 04:30; Stop 02/26/17 at 05:30; Status DC Potassium Chloride (KCl) 40 meq ONCE ONCE PO Last administered on 02/26/17 05 :26; Start 02/26/17 at 04:45; Stop 02/26/17 at 04:46; Status DC Ceftriaxone Sodium 1000 mg/ Sodium Chloride 100 ml @ 200 mls/hr Q24H IV Last administered on 02/28/17 05:15; Start 02/27/17 at 06:00 Sodium Chloride 1,000 ml @ 100 mls/hr Q10H IV Last administered on 02/27/17 20:23; Start 02/26/17 at 05:24 Sodium Chloride (NS Flush) 2 ml UNSCH PRN IV FLUSH FLUSH AFTER USING IV ACCESS ; Start 02/26/17 at 05:30 Sodium Chloride (NS Flush) 2 ml BID IV FLUSH Last administered on 02/28/17 08: 14; Start 02/26/17 at 09:00 Ondansetron HCl (Zofran Inj) 4 mg Q6H PRN IVP NAUSEA OR VOMITING; Start at 05:30 Acetaminophen (Tylenol) 650 mg Q6H PRN PO FEVER/PAIN SCALE 1 TO 2; Start at 05:30 Acetaminophen/ Hydrocodone Bitart ([place] 5-325 Mg) 1 tab Q4H PRN PO PAIN SCALE 3 TO 5 Last administered on 02/28/17 04:10; Start 02/26/17 at 05:30 Morphine Sulfate (Morphine Inj) 2 mg Q3H PRN IV Pain 6-10; Start 02/26/17 at 05 :30 Senna/Docusate Sodium (Luz-Colace) 1 tab BID PO Last administered on 08:14; Start 02/26/17 at 09:00 Magnesium Hydroxide (Milk Of Magnesia Liq) 30 ml Q12H PRN PO MILD - MODERATE CONSTIPATION; Start 02/26/17 at 05:30 Sennosides (Senokot) 17.2 mg Q12H PRN PO MODERATE - SEVERE CONSTIPATION; Start 02/26/17 at 05:30 Bisacodyl (Dulcolax Supp) 10 mg DAILY PRN RECTAL SEVERE CONSITIPATION; Start at 05:30 Lactulose (Lactulose Liq) 30 ml DAILY PRN PO SEVERE CONSITIPATION; Start at 05:30 Insulin Detemir (Levemir Inj) 20 units HS SQ Last administered on 02/27/17 20: 20; Start 02/26/17 at 21:00 Dextrose (D50w (Vial) Inj) 50 ml UNSCH PRN IV HYPOGLYCEMIA-SEE COMMENTS; Start 02/26/17 at 12:30 Glucagon (Glucagon Inj) 1 mg UNSCH PRN OTHER HYPOGLYCEMIA-SEE COMMENTS; Start 02/26/17 at 12:30 Insulin Aspart (NovoLOG SUPPLEMENTAL SCALE) 1 ACHS SLIDING SCALE SQ Last administered on 02/28/17 11:00; Start 02/26/17 at 16:00 Cyclobenzaprine HCl (Flexeril) 10 mg Q8HR PRN PO MUSCLE SPASM; Start 02/26/17 at 12:30 Meloxicam (Mobic) 15 mg DAILY PO Last administered on 02/28/17 08:14; Start at 09:00 Famotidine (Pepcid) 20 mg BID PO Last administered on 02/28/17 08:14; Start at 21:00 Potassium Chloride (KCl) 40 meq ONCE ONCE PO Last administered on 02/27/17 11 :09; Start 02/27/17 at 09:30; Stop 02/27/17 at 09:32; Status DC Urinary Catheter: No Vascular Central Line Catheter: No A/P Problem List: (1) Hyperglycemia ICD Code: R73.9 - Hyperglycemia, unspecified Status: Acute (2) Leukocytosis ICD Code: D72.829 - Elevated white blood cell count, unspecified Status: Acute (3) Dehydration ICD Code: E86.0 - Dehydration Status: Acute (4) Hydroureter ICD Code: N13.4 - Hydroureter Status: Acute (5) UTI (urinary tract infection) ICD Code: N39.0 - Urinary tract infection, site not specified Status: Acute (6) Diabetes ICD Code: E11.9 - Type 2 diabetes mellitus without complications Status: Acute (7) Fibromyalgia ICD Code: M79.7 - Fibromyalgia Status: Acute Assessment and Plan Urinary tract infection with hematuria and positive urinary symptoms continue on current antibiotics with Rocephin--pansensitive we'll switch to Cipro 501 by mouth twice a day for 10 days he can be discharged to home Diabetes mellitus continue on sliding scale coverage with Accu-Cheks before meals and at bedtime and her Lantus Fibromyalgia continue chronic pain medications Dehydration fluids Left-sided flank pain with hydroureter urinary tract infection continue on Rocephin Get physical therapy and occupational therapy to eval and treat Recent increase of sexual relations possible honeymoon cystitis Patient feels much better wants to go home DC to home today to follow up with her primary care physician this week Problem Qualifiers (1) Leukocytosis: (2) UTI (urinary tract infection): Carlos Alberto Pereyra DO Feb 28, 2017 14:25
[2017-02-28] MEDS ORDERED: CIPR-9 PO (14:28)
[2017-02-28] MEDS ORDERED: SENN1TAB PO (14:28)
[2017-02-28] MEDS ORDERED: LACTCHW3 CHEW (14:28)
--- NOTE | 2017-02-28 14:29 | HHI.DCPOC ---
Discharge Care Plan Diagnosis: (1) Fibromyalgia (2) UTI (urinary tract infection) (3) Hydroureter (4) Leukocytosis (5) Hyperglycemia (6) Diabetes (7) Dehydration (8) Systemic inflammatory response syndrome (SIRS) due to infection Your Health Problems Are: Urinary Difficulties Goals to Promote Your Health * To prevent worsening of your condition and complications * To maintain your health at the optimal level Directions to Meet Your Goals Take your medications as prescribed Follow your dietary instruction Follow activity as directed Keep your appointments as scheduled Take your immunizations and boosters as scheduled If your symptoms worsen call your PCP, if no PCP go to Urgent Care Center or Emergency Room Smoking is Dangerous to Your Health. Avoid second hand smoke Call the 24-hour hour crisis hotline for domestic abuse at Carlos Alberto Pereyra DO Feb 28, 2017 14:29
--- NOTE | 2017-02-28 14:31 | HHI.DS ---
Discharge Summary Admission Date Feb 26, 2017 at 05:28 Discharge Date: Feb 28, 2017 Admitting Diagnosis UTI, SIRS, hyperglycemia (1) Hyperglycemia ICD Code: R73.9 - Hyperglycemia, unspecified Diagnosis: Secondary Status: Acute (2) Leukocytosis ICD Code: D72.829 - Elevated white blood cell count, unspecified Diagnosis: Principal Status: Acute (3) Dehydration ICD Code: E86.0 - Dehydration Diagnosis: Secondary Status: Acute (4) Hydroureter ICD Code: N13.4 - Hydroureter Diagnosis: Principal Status: Acute (5) UTI (urinary tract infection) ICD Code: N39.0 - Urinary tract infection, site not specified Diagnosis: Principal Status: Acute (6) Diabetes ICD Code: E11.9 - Type 2 diabetes mellitus without complications Diagnosis: Secondary Status: Acute (7) Fibromyalgia ICD Code: M79.7 - Fibromyalgia Diagnosis: Secondary Status: Acute Procedures None Brief History - From Admission 62-year-old female came to the emergency room with history of left lower quadrant pain. Patient says that it started yesterday morning and it comes and goes. When it's present it's 8-10 out of 10. It's a sharp pain. She has had kidney stones in the past. No history of nausea vomiting. She has been getting some chills. In triage her temperature was 99. She has hematuria. Patient has history of diabetes. She hasn't had her strips for the glucometer and hasn't checked her sugar in a while. Patient also states that she has a new sexual partner. And has been having sexual relations lately. Had not had any sexual relations for 12 years prior to that Unsure if patient is using condoms due to the fact that she cannot get anymore CBC/BMP: 02/28/17 0440 02/28/17 0440 Significant Findings Laboratory Tests Test 02/26/17 03:00 02/26/17 04:00 02/26/17 04:30 02/27/17 11:06 Urine Color LIGHT-RED (YELLW/STRAW) Urine Turbidity CLOUDY (CLEAR) Urine Protein 300 mg/dL (NEG-TRACE) Urine Glucose (UA) 1000 mg/dL (NEG) Urine Ketones 10 mg/dL (NEG) Urine Occult Blood LARGE (NEG) Urine Nitrite POS (NEG) Urine Leukocyte Esterase LARGE (NEG) Urine WBC Clumps MANY (NONE) Urine Mucus FEW /lpf (OCC) White Blood Count 15.2 TH/MM3 (4.0-11.0) Neutrophils (%) (Auto) 84.1 % (16.0-70.0) 71.1 % (16.0-70.0) Neutrophils # (Auto) 12.8 TH/MM3 (1.8-7.7) Monocytes # (Auto) 1.0 TH/MM3 (0-0.9) Random Glucose 278 MG/DL (74-106) 210 MG/DL (74-106) Potassium Level 3.2 MEQ/L (3.5-5.1) 3.4 MEQ/L (3.5-5.1) Estimat Glomerular Filtration Rate 76 ML/MIN (>89) Total Protein 6.3 GM/DL (6.4-8.2) Albumin 2.8 GM/DL (3.4-5.0) Aspartate Amino Transf (AST/SGOT) 10 U/L (15-37) Hemoglobin A1c 13.4 % (4.3-6.0) Thyroid Stimulating Hormone 3rd Gen 0.236 uIU/ML (0.358-3.740) Test 02/28/17 04:40 Random Glucose 123 MG/DL (74-106) Albumin 2.8 GM/DL (3.4-5.0) Aspartate Amino Transf (AST/SGOT) 13 U/L (15-37) Imaging Last Impressions Abdomen/Pelvis CT 02/26/17 0344 Signed Impressions: Service Date/Time: Sunday, February 26, 2017 04:07 - CONCLUSION: 1. Multiple bilateral phleboliths in the retroperitoneum extending into the deep pelvis. 2. There is some pelvocaliectasis and hydroureter of the left kidney but I do not see an obvious obstructing stone. Trevor Hussein MD PE at Discharge GENERAL: This is a well-nourished, well-developed patient, in no apparent distress. SKIN: No rashes, ecchymoses or lesions. Cool and dry. HEAD: Atraumatic. Normocephalic. No temporal or scalp tenderness. EYES: Pupils equal round and reactive. Extraocular motions intact. No scleral icterus. No injection or drainage. ENT: Nose without bleeding, purulent drainage or septal hematoma. Throat without erythema, tonsillar hypertrophy or exudate. Uvula midline. Airway patent. Tongue is midline NECK: Trachea midline. No JVD or lymphadenopathy. Supple, nontender, no meningeal signs. CARDIOVASCULAR: Regular rate and rhythm without murmurs, gallops, or rubs. S1 and S2 no S3 or S4 no heave or thrill or rub or gallop RESPIRATORY: Clear to auscultation. Breath sounds equal bilaterally. No wheezes , rales, or rhonchi. GASTROINTESTINAL: Abdomen soft, non-tender, nondistended. No hepato-splenomegaly , or palpable masses. No guarding. MUSCULOSKELETAL: Extremities without clubbing, cyanosis, or edema. No joint tenderness, effusion, or edema noted. No calf tenderness. Negative Homans sign bilaterally. NEUROLOGICAL: Awake and alert. Cranial nerves II through XII intact. Motor and sensory grossly within normal limits. Five out of 5 muscle strength in all muscle groups. Normal speech. Insight and judgment are good Mood and behavior appropriate LESS CVA tenderness Has some left-sided CVA tenderness Hospital Course 62-year-old female came to the emergency room with history of left lower quadrant pain. Patient says that it started yesterday morning and it comes and goes. When it's present it's 8-10 out of 10. It's a sharp pain. She has had kidney stones in the past. No history of nausea vomiting. She has been getting some chills. In triage her temperature was 99. She has hematuria. Patient has history of diabetes. She hasn't had her strips for the glucometer and hasn't checked her sugar in a while. Patient also states that she has a new sexual partner. And has been having sexual relations lately. Had not had any sexual relations for 12 years prior to that Unsure if patient is using condoms due to the fact that she cannot get anymore 8-19 she still has some back pain but feels a little better than yesterday. Continue antibiotics continue fluids Discussed with patient and RN 8-20 feeling better wants to go home. Escherichia coli noted on the urinary tract infection pansensitive Does not like the food. Would like to go home We'll discharge to home today on oral Cipro To follow-up with her primary care physician Discharged Pt Condition on Discharge: Good Discharge Disposition: Discharge Home Discharge Time: > 30 minutes Discharge Instructions DIET: Follow Instructions for: Heart Healthy Diet, Diabetic Diet Activities you can perform: Regular-No Restrictions Follow up Referrals: PCP Follow-up - 3-5 Days New Medications: Ciprofloxacin (Cipro) 500 Mg Tab 500 MG PO BID for Infection for 10 Days, #20 TAB 0 Refills Lactobacillus Acidophilus (Lactinex) 1 Chew 1 TAB CHEW TID for Nutritional Supplement for 10 Days, #30 TAB 0 Refills Sennosides-Docusate Sodium (Senna Plus 8.6-50 mg) 1 Tab Tab 2 TAB PO BID for CONSTIPATION, #120 TAB Continued Medications: Cyclobenzaprine (Flexeril) 10 Mg Tab 10 MG PO Q8HR PRN for MUSCLE SPASM, #90 TAB 0 Refills Hydromorphone (Dilaudid) 8 Mg Tab 8 MG PO TID PRN for Pain Management, TAB 0 Refills Insulin Glargine Inj (Lantus Inj) 1,000 Unit/10 Ml Vial 20 UNITS SQ HS for Blood Sugar Management, VIAL 0 Refills Meloxicam (Mobic) 15 Mg Tab 15 MG PO DAILY, TAB 0 Refills Ranitidine (Zantac) 150 Mg Tab 150 MG PO BID for Reduce Stomach Acid for 5 Days, TAB 0 Refills Carlos Alberto Pereyra DO Feb 28, 2017 14:31
== END 2017-02-28 15:04 | disposition home or self-care (01) | DRG 690 ==
LOC: NEPC 02:43 → NEDA 05:28 → HOCB 09:43
PROVIDERS: ADMIT Hospitalist; ATTEND Hospitalist
DX: N13.6 Pyonephrosis (principal); E11.65 Type 2 diabetes mellitus with hyperglycemia; B96.20 Unspecified Escherichia coli [E. coli] as the cause of diseases classified elsewhere; E86.0 Dehydration; M79.7 Fibromyalgia; I87.8 Other specified disorders of veins; Z87.442 Personal history of urinary calculi; R31.9 Hematuria, unspecified; M54.30 Sciatica, unspecified side; M19.90 Unspecified osteoarthritis, unspecified site
CPT/HCPCS: 74176; 80048; 80053; 81001; 82948; 83036; 83605; 83735; 84100; 84439; 84443; 85025; 87040; 87077; 87086; 87186; 96365; 96375; J0696; J1815; J2270; J2405; J7030